=== PATIENT | male | born 1960 | race Caucasian/White ===

== ENCOUNTER 2016-11-01 09:56 | Outpatient (CLI) | payer OTHER ==
[2016-11-01 10:45] LABS: #Basophils 0.1 thou/uL (0.0-0.2); #Eosinphils 0.3 thou/uL (0.0-0.7); #Lymphocytes 2.3 thou/uL (1.20-3.40); #Monocytes 0.7 thou/uL (0.11-0.59); #Neutrophils 6.5 thou/uL (1.40-6.50); %Basophils 0.9 % (0.0-1.0); %Eosinophils 2.6 % (0.0-10.0); %Lymphocytes 23.6 % (21.0-51.0); %Monocytes 7.4 % (0.0-10.0); %Neutrophils 65.5 % (42.0-75.0); Hemoglobin 17.3 g/dL (14.0-18.0); Mean Corpuscular HGB CONC 34.1 g/dL (32.0-36.0); Mean Corpuscular Hemoglobin 31.7 pg (27.0-31.0); Mean Corpuscular Volume 93.1 fl (80.0-94.0); Mean Platelet Volume 7.8 fL (7.4-10.4); Platelet Count 262 thou/uL (130-400); RBC Distribution Width 11.3 % (11.5-14.5); Red Blood Cell (RBC) Count 5.45 mill/uL (4.70-6.10); White Blood Cell (WBC) Count 9.9 thou/uL (4.8-10.8)
[2016-11-01 10:48] LABS: Hemoglobin A1c 8.7 % (4.0-6.0)
[2016-11-01 10:56] LABS: ALT (SGPT) 34 U/L (0-55); AST (SGOT) 18 U/L (5-34); Albumin 4.2 g/dL (3.5-5.0); Alkaline Phosphatase 89 U/L (40-150); Anion Gap 18 mmol/L (10-20); BUN (Urea Nitrogen) 21 mg/dL (8.4-25.7); Bilirubin, Total 0.5 mg/dL (0.2-1.2); Calc. Creatinine Clearance 0 mL/min (70-130); Calcium 9.2 mg/dL (7.8-10.44); Carbon Dioxide 17 mmol/L (22-29); Cardiac Risk 3.7 (Less than 4.5); Chloride 103 mmol/L (98-107); Cholesterol 179 mg/dL (< 200 Desired); Estimated GFR-MDRD 67; Globulin 2.5 g/dL (2.4-3.5); Glucose 194 mg/dL (70-105); HDL Cholesterol 48 mg/dL (>60 Neg Risk); LDL Cholesterol, Calculated 105 mg/dL; Potassium 4.3 mmol/L (3.5-5.1); Protein, Total 6.7 g/dL (6.0-8.3); Sodium 134 mmol/L (136-145); Triglycerides 131 mg/dL (Less than 150)
[2016-11-01 17:45] LABS: Creatinine, Urine 71.09 mg/dL (63-166); Microalbumin Urine 3.5 mg/dL (0.5-50.0); Microalbumin/Creat Ratio 49.2 mg/g (Less than 30)
== END 2016-11-01 09:57 | disposition home or self-care (01) ==
LOC: MADLABBHPM 09:56
PROVIDERS: ATTEND Family Medicine
DX: E11.9 Type 2 diabetes mellitus without complications (principal)
CPT/HCPCS: 36415; 80053; 80061; 82043; 83036; 85025

== ENCOUNTER 2018-12-19 21:22 | Emergency (ER) | payer OTHER ==
[~2018-12-19 21:22] MED LIST: Sterile Water Irrigation 250 ML BOT ONE
[2018-12-19] MEDS ORDERED: Lidocaine 1% 20 ML MDV ONE (22:21)
[2018-12-19] MEDS ORDERED: Clindamycin 150 MG CAP ONE (22:49)
== END 2018-12-19 23:00 | disposition home or self-care (01) ==
LOC: MADERS 21:22
DX: S61.411A Laceration without foreign body of right hand, initial encounter (principal); I10 Essential (primary) hypertension; E78.00 Pure hypercholesterolemia, unspecified; E11.9 Type 2 diabetes mellitus without complications; Z79.899 Other long term (current) drug therapy; W11.XXXA Fall on and from ladder, initial encounter
CPT/HCPCS: 12002; J2001